=== PATIENT | male | born 1930 | race Caucasian/White ===

== ENCOUNTER 2019-01-06 06:45 | Day surgery (SDC) | payer OTHER ==
[~2019-01-06] VITALS: Ht 170.2 cm; Wt 73.5 kg
[2019-01-06] MEDS ORDERED: hydrALAZINE 20 MG/ML VIAL IVP PRN (07:20)
[2019-01-06] MEDS ORDERED: CEFAZOLIN SODIUM 1 GM/D5W PM 50 ML IV ONE (07:40)
[2019-01-06] MEDS ORDERED: BUPIVACAINE-MPF 0.25% 30 ML VIAL INJ ONE (08:08)
[2019-01-06] MEDS ORDERED: PROPOFOL 200 MG/20 ML VIAL IV ONE (09:13)
[2019-01-06] MEDS ORDERED: fentaNYL 0.05 MG/ML VIAL ONE (09:34)
[2019-01-06] MEDS ORDERED: ONDANSETRON 4 MG/2 ML VIAL IVP PRN (09:55)
[2019-01-06] MEDS ORDERED: HYDROmorphone 1 MG/ML AMP IVP PRN ×2 (09:55→11:20)
[2019-01-06] MEDS ORDERED: ceFAZolin 1,000 MG VIAL ONE (10:03)
[2019-01-06] MEDS ORDERED: ACETAMINOPHEN 325 MG TAB PO PRN (11:20)
[2019-01-06] MEDS ORDERED: MORPHINE SULFATE 2 MG/ML SYR IVP PRN (11:20)
[2019-01-06] MEDS ORDERED: ONDANSETRON 4 MG/2 ML VIAL IV PRN (11:20)
[2019-01-06] MEDS ORDERED: HYDROcodone/APAP 5/325 MG 1 TAB TAB PO PRN (11:20)
[2019-01-06] MEDS ORDERED: MORPHINE SULFATE 4 MG/ML SYR IV PRN (11:20)
[2019-01-06 12:25] VITALS: BP 145/63
--- NOTE | 2019-01-06 12:25 | NUR ---
RECEIVED PATIENT FROM OR NURSE. AOX4. DENIES PAIN AT THIS TIME. NO SIGNS OF DISTRESS NOTED. RA. IV ON L WRIST 20G, INFUSING PER MD ORDER. IV SITE CLEAN AND DRY. ABLE TO AMBULATE WITH STEADY GAIT, URANAL AT BEDSIDE. RESPIRATION EVEN AND UNLABORED. DRESSING ON L ABDOMEN CLEAN AND DRY. ORIENTED PT TO THE ROOM, INSTRUCTED HIM ON HOW TO USE THE CALL LIGHT,TV, AND LIGHT. DISCUSS PLAN OF CARE WITH PT, PT VERBALIZED UNDERSTANDING. SAFETY MEASURES IN PLACE. BED IN LOW POSITION, CALL LIGHT WITHIN REACH.
[2019-01-06] MEDS: NACL 0.9% 1,000 ML IV SCH (13:26)
--- NOTE | 2019-01-06 13:26 | NUR ---
STARTED NS 0.9% PER MD ORDERS AT THIS TIME. WILL CONTINUE TO MONITOR.
--- NOTE | 2019-01-06 15:45 | NUR ---
PT IS SLEEPING AT THIS TIME. NO SIGNS OF DISTRESS NOTED.
--- NOTE | 2019-01-06 19:15 | NUR ---
BEDSIDE REPORT GAVE TO [facility]ACH[facility] MENDER NURSE. PT IS IN STABLE CONDITION. FAMILY AT BEDSIDE.
--- NOTE | 2019-01-06 20:30 | NUR ---
PT IN BED SITTING UP AOX4. PT SKIN INTACT AND DRESSING INTACT ON LEFT SIDE NO S/S OF DRAINAGE NOTED. PT C/O OF MODERATE PAIN / AND WAS GIVEN 1 TAB NORCO PO/PRN. PT HAD AMBULATED TO BATHROOM STEADILY AND BACK TO BED. PT SAID THAT HE HAD A BM IN THE AM. LUNGS CLEAR AND BOWEL SOUNDS NOTED IN ALL 4 QUADS. PT WAS GIVEN TURKEY SANDWICH AND A DESSERT BECAUSE HE HAD MISSED SUPPER. PT FINISHED THE SANDWICH. V/S FOLLOWS T 97.6 P 90 R 20 B/P 159/86 02 94 ON ROOM AIR. FAMILY STILL AT BEDSIDE.
--- NOTE | 2019-01-06 21:30 | NUR ---
PT SAID THAT HE WAS FEELING BETTER AND HAS NO MORE PAIN AT THIS TIME. PT IN LOW BED WITH SIDE RAILS UP X2 AND CALL ALBA IN REACH. FAMILY NO LONGER AT BEDSIDE.
--- NOTE | 2019-01-06 22:52 | NUR ---
PT SLEEPING COMFORTABLY. BED REMAINS LOW SIDE RAILS UP AND CALL ALBA IN REACH.
[2019-01-07] VITALS: BP 108/55
--- NOTE | 2019-01-07 00:30 | NUR ---
PT IN BED RESTING BUT AROUSABLE TO NAME. IV SITE R WRIST 20G RUNNING 50 N/S ORDERED. PT DENIES PAIN BED LOW WITH SIDE RAILS UP AND CALL ALBA IN REACH.
--- NOTE | 2019-01-07 04:00 | NUR ---
PT IN BED BUT AROUSABLE TO NAME. PT SAID HE FELT A LITLE PAIN WHEN HE MOVED AT THE SURGICAL SITE BUT HE IS OK AND DOESN'T WANT PAIN MEDICATION. PT HAS N/S RUNNING AT 50. NO S/S OF PAIN OR DISTRESS NOTED. DRESSING IS DRY AND INTACT.
[2019-01-07] MEDS: NACL 0.9% 1,000 ML IV SCH (07:17)
--- NOTE | 2019-01-07 07:30 | NUR ---
ENDORSED CARE TO YAQUELIN CHOUDHURY, AT BEDSIDE FOR CONTINUITY OF CARE.
--- NOTE | 2019-01-07 07:31 | NUR ---
RECEIVED BEDSIDE REPORT FROM MINE SEXTON. PT STABLE, AWAKE, AND ALERT. NO SIGNS OF DISTRESS NOTED. NO REDNESS SWELLING OR INFLAMMATION NOTED ON IV SITE. DENIES PAIN. CALL ALBA WITHIN REACH. SAFETY MEASURES IN PLACE. PLAN OF CARE REVIEWED.
[2019-01-07 08:00] VITALS: BP 127/62
[2019-01-07] MEDS ORDERED: HYDR-5122 PO (08:33)
--- NOTE | 2019-01-07 09:30 | NUR ---
PT STABLE, SLEEPING BUT EASILY AROUSABLE. NO NEEDS AT THIS TIME.
--- NOTE | 2019-01-07 11:45 | NUR ---
SPOKE WITH PT'S SON REGARDING DISCHARGE TIME.
--- NOTE | 2019-01-07 11:54 | NUR ---
PATIENT HAS BEEN SCREENED AND CATEGORIZED LOW NUTRITION RISK. PATIENT WILL BE SEEN WITHIN 7 DAYS OF ADMISSION. 01/13/19 FADI HOPKINS MBA, RD
--- NOTE | 2019-01-07 13:20 | NUR ---
D/C INSTRUCTIONS AND PRESCRIPTION GIVEN. PT AND FAMILY VERBALIZED UNDERSTANDING. QUESTIONS AND CONCERNS WERE ADDRESSED. IV DISCONTINUED, CATHETER TIP INTACT, BLEEDING CONTROLLED. PER PT AND FAMILY, INFLUENZA VACCINE WAS GIVEN SEPTEMBER 2018, PNEUMONIA VACCINE REFUSED. DISCHARGE PHOTOGRAPH OF SURGICAL WOUND REFUSED. PT STABLE AND AMBULATORY. ESCORTED PT AND FAMILY TO THE LOBBY.
== END 2019-01-07 13:20 | disposition home or self-care (01) ==
LOC: MMU 06:45 → MDS 06:45 → MTU 14:24 → MDS 01-07 13:20
PROVIDERS: ATTEND Surgery
DX: K40.30 Unilateral inguinal hernia, with obstruction, without gangrene, not specified as recurrent (principal); K21.9 Gastro-esophageal reflux disease without esophagitis; I10 Essential (primary) hypertension; F15.90 Other stimulant use, unspecified, uncomplicated; Z79.899 Other long term (current) drug therapy; Z98.890 Other specified postprocedural states; Z85.46 Personal history of malignant neoplasm of prostate
CPT/HCPCS: 49507; 82948; 87081; C1781; J0360; J0690; J2704; J3010; J3490; J7030; J7060; J7120